=== PATIENT | male | born 1975 | race Caucasian/White ===

== ENCOUNTER 2016-10-18 14:33 | Inpatient (IN) ==
[2016-10-18] MEDS ORDERED: NS 1,000 ML ONE (14:40)
[2016-10-18] MEDS ORDERED: ZOFRAN ONE (14:40)
[2016-10-18] MEDS ORDERED: DILAUDID ONE ×3 (14:40→17:51)
[2016-10-18] MEDS ORDERED: ZOFRAN IV ONE (14:52)
[2016-10-18] MEDS ORDERED: NS 1,000 ML IV ONE (14:52)
[2016-10-18] MEDS ORDERED: DILAUDID IV ONE ×3 (14:52→18:17)
[2016-10-18] MEDS ORDERED: MORPHINE IV ONE ×2 (15:22→17:02)
[2016-10-18] MEDS ORDERED: MORPHINE ONE (15:24)
--- NOTE | 2016-10-18 16:20 | Diag Imaging Result Doc PS360 ---
EXAM: LOWER LEG-RIGHT HISTORY: TRAUMA TECHNIQUE: Right lower leg five views COMMENT: There is a fracture dislocation of the ankle. There is a fracture of the medial malleolus and the posterior lip of the distal tibia. The plafond and is subluxed anteriorly and medially with respect to the talar dome. There is also a fracture of the distal fibular shaft. IMPRESSION: Fracture dislocation as described. Electronically signed by Markel Jeter 10/18/2016 4:18 PM
[2016-10-18] MEDS ORDERED: MARCAINE 0.5% PF ONE (17:17)
[2016-10-18] MEDS ORDERED: XYLOCAINE-MPF 1% 10 ML ONE (17:18)
[2016-10-18] MEDS ORDERED: PHENERGAN ONE (17:29)
[2016-10-18] MEDS ORDERED: PHENERGAN IV ONE (17:35)
[2016-10-18] MEDS ORDERED: SODIUM CHLORIDE 0.9% INJ ONE (17:35)
--- NOTE | 2016-10-18 18:21 | Diag Imaging Result Doc PS360 ---
EXAM: LOWER LEG-RIGHT HISTORY: post reduction TECHNIQUE: Right lower leg post reduction views four views COMMENT: There is fracture of the distal tibia and the distal fibular shaft. The dislocation of the ankle mortise which was demonstrated on the original set of images has largely been reduced with only slight subluxation of the plafond medially with respect to the talar dome. IMPRESSION: Fracture distal tibia and fibula with improved alignment of the ankle mortise. Electronically signed by Markel Jeter 10/18/2016 6:19 PM
[2016-10-18] MEDS ORDERED: TYLENOL PO PRN (18:47)
[2016-10-18] MEDS ORDERED: ZOFRAN IV PRN (18:47)
[2016-10-18] MEDS: DILAUDID IV PRN (21:15)
[2016-10-18] MEDS: BENADRYL PO PRN (22:58)
[2016-10-19] MEDS: DILAUDID IV PRN ×5 (01:41→21:42)
[2016-10-19] MEDS: BENADRYL PO PRN ×3 (01:41→21:43)
[2016-10-19 05:45] LABS: HEMATOCRIT 45.4 % (42.0-52.0); HEMOGLOBIN 15.2 g/dL (14.0-18.0); MCHC 33.5 g/dL (33-37); MCV 92.7 FL (81-99); MPV 9.8 FL (7.4-10.4); RBC 4.9 XMIL (4.7-6.1)
[2016-10-19 05:52] LABS: INR 0.96; PTT 23.7 Seconds (22.0-36.0)
[2016-10-19 06:05] LABS: AGAP 14; BUN 12 mg/dL (8-22); CHLORIDE 102 mmol/L (98-107); COSMO 286; POTASSIUM 4.1 mmol/L (3.5-5.1); SODIUM 143 mmol/L (136-145); TCO2 27 mmol/L (25-35)
[2016-10-19] MEDS ORDERED: XYLOCAINE-MPF 2% ONE ×2 (18:02→20:14)
[2016-10-19] MEDS ORDERED: SENSORCAINE 0.5%-EPI 1:200,000 ONE (18:03)
[2016-10-19] MEDS ORDERED: NEOSPORIN G.U. IRRIGANT ONE (18:03)
[2016-10-19] MEDS ORDERED: DIPRIVAN 1% ONE (18:03)
[2016-10-19] MEDS ORDERED: KEFZOL 2 GM/D5W 2 GM/50 ML IVPB ONE (18:25)
[2016-10-19] MEDS ORDERED: VERSED ONE (18:28)
[2016-10-19] MEDS ORDERED: FENTANYL ONE (18:45)
[2016-10-19] MEDS ORDERED: DECADRON ONE (18:46)
[2016-10-19] MEDS ORDERED: TORADOL ONE ×2 (18:46→19:30)
[2016-10-19] MEDS ORDERED: ZOFRAN ONE (18:46)
[2016-10-19] MEDS ORDERED: OFIRMEV 1000 MG/ISOTONIC SOLN 1,000 MG/100 ML BOTTLE ONE (19:30)
[2016-10-19] MEDS ORDERED: DEMEROL ONE (20:07)
[2016-10-19] MEDS: DILAUDID ONE ×4 (20:25→20:46)
[2016-10-19] MEDS ORDERED: MORPHINE IV PRN (20:32)
[2016-10-19] MEDS: PHENERGAN ONE ×2 (20:50→21:00)
[2016-10-19] MEDS ORDERED: 1/2 NS 1,000 ML ONE (20:50)
[2016-10-19] MEDS ORDERED: 1/2 NS 1,000 ML IV SCH (21:00)
[2016-10-19] MEDS: PERIDEX MT SCH (21:43)
[2016-10-19] MEDS: NORCO-10 PO PRN (22:14)
[2016-10-20] MEDS: NORCO-10 PO PRN ×4 (02:02→12:04)
[2016-10-20] MEDS: KEFZOL 2 GM/D5W 2 GM/50 ML IVPB IV SCH ×2 (02:03→09:16)
[2016-10-20] MEDS: PERIDEX MT SCH (09:16)
[2016-10-20] MEDS ORDERED: NORCO-10 PO ONE (11:50)
[2016-10-20 12:31] VITALS: BP 129/77
== END 2016-10-20 13:17 | disposition home or self-care (01) ==
LOC: 4N 14:33 → P.ED 14:33 → SUATTDRO 18:46 → OBSVTOIN 18:46
PROVIDERS: ATTEND Internal Medicine